=== PATIENT | male | born 1985 | race Caucasian/White ===

== ENCOUNTER 2025-07-16 22:36 | Emergency (ER) | payer OTHER ==
[~2025-07-16] VITALS: Ht 167.6 cm; Wt 88.6 kg
[2025-07-16] MEDS: SODIUM CHLORIDE 0.9% 1,000 ML IV ONE (01:50)
[2025-07-16] MEDS: LIDOCAINE 1% 10 ML VIAL IARTIC ONE (23:15)
[2025-07-17] MEDS: MORPHINE SULFATE 4 MG/ML SYRINGE IVP ONE (00:15)
[2025-07-17 01:50] VITALS: TEMP 98.1
[2025-07-17 01:54] VITALS: O2SAT 100
[2025-07-17] MEDS: MIDAZOLAM HCL 2 MG/2 ML VIAL IVP ONE (01:54)
[2025-07-17] MEDS: FentaNYL CITRATE PF 100 MCG/2 ML VIAL IVP ONE (02:13)
[2025-07-17 03:30] VITALS: BP 127/67; PULSE 61; RESP 16; O2SAT 99
== END 2025-07-17 04:41 ==
LOC: EMS 22:39
DX: S43.015A Anterior dislocation of left humerus, initial encounter (principal); E78.00 Pure hypercholesterolemia, unspecified; F20.9 Schizophrenia, unspecified; F31.9 Bipolar disorder, unspecified; F11.90 Opioid use, unspecified, uncomplicated; F14.90 Cocaine use, unspecified, uncomplicated; Z98.890 Other specified postprocedural states; Z88.5 Allergy status to narcotic agent; X58.XXXA Exposure to other specified factors, initial encounter; Y93.89 Activity, other specified; Y92.89 Other specified places as the place of occurrence of the external cause; Y99.8 Other external cause status
CPT/HCPCS: 99285; 23650; 96361; 73030 ×2; 96374; 96375; 99152; 93005; J7030; J3010; J2250; J2270; J3490

== ENCOUNTER 2025-07-22 16:01 | Emergency (ER) | payer OTHER ==
[~2025-07-22] VITALS: Ht 175.3 cm; Wt 95.0 kg
[2025-07-22] MEDS ORDERED: ACETAMINOPHEN 500 MG TABLET PO ONE (16:30)
[2025-07-22] MEDS ORDERED: KETOROLAC TROMETHAMINE 30 MG/ML VIAL IM ONE (16:30)
[2025-07-22] MEDS ORDERED: MIDAZOLAM HCL 2 MG/2 ML VIAL IVP ONE (17:00)
[2025-07-22] MEDS ORDERED: MIDAZOLAM HCL 5 MG/ML VIAL IVP ONE (17:15)
[2025-07-22 17:26] VITALS: TEMP 97.8
[2025-07-22] MEDS: KETOROLAC TROMETHAMINE 30 MG/ML VIAL IVP ONE (17:49)
[2025-07-22] MEDS: MIDAZOLAM HCL 5 MG/ML VIAL IVP ONE (18:17)
[2025-07-22 19:22] VITALS: BP 129/89; PULSE 55; RESP 13; O2SAT 100
== END 2025-07-22 20:56 ==
LOC: EMS 16:01
DX: S43.005A Unspecified dislocation of left shoulder joint, initial encounter (principal); E78.00 Pure hypercholesterolemia, unspecified; F20.9 Schizophrenia, unspecified; F31.9 Bipolar disorder, unspecified; F14.90 Cocaine use, unspecified, uncomplicated; F11.90 Opioid use, unspecified, uncomplicated; Z98.890 Other specified postprocedural states; Z88.5 Allergy status to narcotic agent; X58.XXXA Exposure to other specified factors, initial encounter; Y93.E9 Activity, other interior property and clothing maintenance; Y92.89 Other specified places as the place of occurrence of the external cause; Y99.8 Other external cause status
CPT/HCPCS: 99285; 23650; 96374; 96375; 73030; 99152; J1885; J2250

== ENCOUNTER 2025-07-23 15:12 | Emergency (ER) | payer OTHER ==
[~2025-07-23] VITALS: Ht 175.3 cm; Wt 95.0 kg
[2025-07-23 16:03] VITALS: TEMP 97.8
[2025-07-23 20:05] VITALS: O2SAT 100
[2025-07-23] MEDS: MORPHINE SULFATE 4 MG/ML SYRINGE IVP ONE (20:08)
[2025-07-23] MEDS: MIDAZOLAM HCL 5 MG/ML VIAL IVP ONE (20:12)
[2025-07-23] MEDS: SODIUM CHLORIDE 0.9% 1,000 ML IV ONE (20:44)
[2025-07-23 23:02] VITALS: BP 112/77; PULSE 52; RESP 12; O2SAT 100
== END 2025-07-23 23:50 ==
LOC: EMS 15:12
DX: S43.005A Unspecified dislocation of left shoulder joint, initial encounter (principal); E78.00 Pure hypercholesterolemia, unspecified; F20.9 Schizophrenia, unspecified; F31.9 Bipolar disorder, unspecified; F11.90 Opioid use, unspecified, uncomplicated; F14.90 Cocaine use, unspecified, uncomplicated; Z98.890 Other specified postprocedural states; Z88.5 Allergy status to narcotic agent; X58.XXXA Exposure to other specified factors, initial encounter; Y93.89 Activity, other specified; Y92.89 Other specified places as the place of occurrence of the external cause; Y99.8 Other external cause status
CPT/HCPCS: 99285; 23650; 96374; 96361; 96375; 73030; J2270; J2250; J7030

== ENCOUNTER 2025-08-01 21:41 | Emergency (ER) | payer OTHER ==
[~2025-08-01] VITALS: Ht 172.7 cm; Wt 81.8 kg
[2025-08-01 21:50] VITALS: BP 122/77; PULSE 61; RESP 16; TEMP 98.4; O2SAT 99
[2025-08-01] MEDS: KETOROLAC TROMETHAMINE 30 MG/ML VIAL IM ONE (22:48)
== END 2025-08-01 23:07 ==
LOC: EMS 21:41
DX: M24.412 Recurrent dislocation, left shoulder (principal); E78.00 Pure hypercholesterolemia, unspecified; F20.9 Schizophrenia, unspecified; F31.9 Bipolar disorder, unspecified; F14.90 Cocaine use, unspecified, uncomplicated; F11.90 Opioid use, unspecified, uncomplicated; Z98.890 Other specified postprocedural states; Z88.5 Allergy status to narcotic agent; X58.XXXA Exposure to other specified factors, initial encounter; Y93.89 Activity, other specified; Y92.89 Other specified places as the place of occurrence of the external cause; Y99.8 Other external cause status
CPT/HCPCS: 99283; 29105; 73030; 96372; J1885